=== PATIENT | male | born 1960 | race Two or more races ===

== ENCOUNTER 2025-01-17 15:25 | Outpatient (CLI) | payer OTHER | END 2025-01-17 15:33 | disposition home or self-care (01) | LOC: EKG 15:25 | PROVIDERS: ATTEND Internal Medicine Hematology & Oncology | DX: I49.5 Sick sinus syndrome (principal) ==

== ENCOUNTER 2025-06-05 10:44 | Inpatient (IN) | payer OTHER ==
[2025-06-05 12:02] LABS: BASO % 0.6 % (0.1-1.2); EOS # 0.04 (0.04-0.54); EOS % 0.8 % (0.7-7.0); LYMPH # 1.26 (1.18-3.74); LYMPH % 24.0 % (19.3-53.1); MEAN PLATELET VOLUME 9.30 fl (9.4-12.4); MONO # 0.37 (0.24-0.82); MONO % 7.0 % (4.7-12.5); NEUT # 3.23 (1.56-6.13); NEUT % 61.5 % (34.0-71.1); RED CELL DISTRIBUTION WIDTH 17.8 % (11.6-14.4)
[2025-06-05 12:33] LABS: INR 1.08
[2025-06-05 12:41] LABS: ALT/SGPT 10.0 U/L (12-78); AST/SGOT 53.0 U/L (15-37); BILIRUBIN TOTAL 0.7 mg/dL (0.3-1.2); BUN CREA RATIO 13.0 (7.0-25.0); CREATININE SERUM 0.93 mg/dL (0.70-1.30); GFR 81.29; GLOBULINA 3.5 G/DL (2.4-3.5); GLUCOSE FASTING 154.0 mg/dL (65-100); OSMOLALITY SERUM 284.0 MOSM/KG (275-295)
[2025-06-05] MEDS ORDERED: RINGERS SOLUTION,LACTATED 1,000 ML IV SCH (13:15)
[2025-06-05] MEDS ORDERED: ACETAMINOPHEN 325 MG TABLET PO PRN (13:15)
[2025-06-05] MEDS ORDERED: MULTIVIT INFUSN,ADULT 4,VIT K 10 ML VIAL IV SCH (13:22)
[2025-06-05 16:37] VITALS: BP 149/78; O2SAT 99
[2025-06-05 17:52] VITALS: BP 154/78; O2SAT 98
[2025-06-05] MEDS ORDERED: FAMOTIDINE/PF 20 MG/2 ML VIAL IV PUSH STA (18:58)
[2025-06-05] MEDS ORDERED: TRAMADOL HCL50 MG (19:36)
[2025-06-05] MEDS ORDERED: XGEVA120 MG/1.7 (19:36)
[2025-06-05] MEDS ORDERED: XTANDI80 MG (19:36)
[2025-06-05] MEDS ORDERED: PANTOPRAZOLE SO40 MG (19:37)
[2025-06-06 01:31] VITALS: BP 136/83; O2SAT 97
[2025-06-06 08:26] VITALS: BP 163/79; O2SAT 98
[2025-06-06] MEDS ORDERED: FAMOTIDINE/PF 20 MG/2 ML VIAL IV PUSH SCH (09:00)
[2025-06-06] MEDS ORDERED: ENALAPRILAT DIHYDRATE 1.25 MG/ML VIAL IV STA (09:29)
[2025-06-06] MEDS ORDERED: ENALAPRILAT DIHYDRATE 1.25 MG/ML VIAL IV PRN (09:30)
[2025-06-06 16:00] VITALS: BP 161/81; O2SAT 97
[2025-06-06 18:41] LABS: BASO % 0.6 % (0.1-1.2); EOS # 0.03 (0.04-0.54); EOS % 0.6 % (0.7-7.0); LYMPH # 1.61 (1.18-3.74); LYMPH % 29.7 % (19.3-53.1); MEAN PLATELET VOLUME 9.10 fl (9.4-12.4); MONO # 0.37 (0.24-0.82); MONO % 6.8 % (4.7-12.5); NEUT # 3.01 (1.56-6.13); NEUT % 55.3 % (34.0-71.1); RED CELL DISTRIBUTION WIDTH 16.4 % (11.6-14.4)
[2025-06-06 21:10] LABS: BAND MAN 1.0 %; LYMPHOCYTE MAN 23.0 %
[2025-06-06 21:11] LABS: MONOCYTE MAN 9.0 %; MYELOCYTE 3.0 %
[2025-06-06 21:12] LABS: BLAST MAN 1.0 %
[2025-06-06 21:13] LABS: NEUTROPHILS MAN 63.0 %
== END 2025-06-06 19:59 | disposition home or self-care (01) | DRG 723 ==
LOC: SURH 10:44 → SEC-K 10:44 → SURH 16:06
PROVIDERS: ADMIT Internal Medicine Hematology & Oncology; ATTEND Internal Medicine Hematology & Oncology
PROC: 30233N1 Transfusion of Nonautologous Red Blood Cells into Peripheral Vein, Percutaneous Approach (ICD-10-PCS; principal; 2025-06-05)
DX: C61 Malignant neoplasm of prostate (principal); C77.5 Secondary and unspecified malignant neoplasm of intrapelvic lymph nodes; C79.51 Secondary malignant neoplasm of bone; D63.0 Anemia in neoplastic disease; E29.1 Testicular hypofunction; K21.9 Gastro-esophageal reflux disease without esophagitis

== ENCOUNTER 2025-07-17 19:10 | Inpatient (IN) | payer OTHER ==
[~2025-07-17] VITALS: Ht 170.2 cm; Wt 57.6 kg
[~2025-07-17 19:10] MED LIST: PANTOPRAZOLE SO40 MG; TRAMADOL HCL50 MG; XGEVA120 MG/1.7; XTANDI80 MG
[2025-07-17] MEDS ORDERED: XTANDI80 MG PO (19:37)
[2025-07-17] MEDS ORDERED: GLIMEPIRIDE1 MG (19:38)
[2025-07-17] MEDS ORDERED: ARBLI10 MG/1 ML PO (19:38)
[2025-07-17] MEDS ORDERED: CARDURA XL4 MG PO (19:38)
--- NOTE | 2025-07-17 19:38 | NUR ---
SE RECIBE PACIENTE ALERTA Y CONCIENTE X3. EL MISMO REFIERE TENER REFERIDO P[FRDEDY TRANFUSION DE TONYA DEL DR. NAVARRO. SE PROCEDE A AGGIE S/V A PACIENTE Y SE UBICA EL MISMO EN ANDERSON, BARANDAS ELEVADAS Y NIVEL MAS BAJO DE LA MISMA.
[2025-07-17] MEDS ORDERED: FAMOTIDINE/PF 20 MG/2 ML VIAL IV STA (19:51)
[2025-07-17] MEDS ORDERED: 0.9 % SODIUM CHLORIDE 1,000 ML IV STA (19:51)
[2025-07-17] MEDS ORDERED: FAMOTIDINE/PF 20 MG/2 ML VIAL ONE (20:04)
[2025-07-17 20:38] LABS: URINE APPEARANCE Turbid; URINE BILIRRUBIN Negative (NEGATIVE); URINE BLOOD Moderate; URINE COLOR Yellow; URINE GLUCOSE Negative (NEGATIVE); URINE KETONE Trace (NEGATIVE); URINE LEUKOCYTE Large; URINE NITRATE Positive; URINE UROBILINOGEN 0.2 E.U./dl
[2025-07-17 20:42] LABS: URINE CAST 1.90 uL (0.0-1.40); URINE EPITHELIAL CELLS 11.8 uL (0.0-38.8); URINE RBC 133.9 uL (0.0-20.8)
--- NOTE | 2025-07-17 20:43 | NUR ---
SE EDUCA PACIENTE SOBRE EL [place] MEDICO Y ESTA REFIERE ENTENDER. SE MICHEAL MUESTRAS DE LABORATORIOS Y SE ENVIAN. SE CANALIZA Y SE ADMINISTRA MEDIAMENTOS AISHA ORDEN MEDICA. SE REALIZA EKG
[2025-07-17 20:44] LABS: BASO % 0.4 % (0.1-1.2); EOS # 0.04 (0.04-0.54); EOS % 1.6 % (0.7-7.0); LYMPH # 0.75 (1.18-3.74); LYMPH % 30.7 % (19.3-53.1); MEAN PLATELET VOLUME 9.30 fl (9.4-12.4); MONO # 0.26 (0.24-0.82); MONO % 10.7 % (4.7-12.5); NEUT # 1.27 (1.56-6.13); NEUT % 52.1 % (34.0-71.1); RED CELL DISTRIBUTION WIDTH 19.4 % (11.6-14.4)
[2025-07-17 21:06] LABS: TYPE CELLS RENAL TUBULAR; URINE BACTERIA > 9821.5 uL (0.0-1933); URINE PROTEIN 100 (NEGATIVE); URINE WBC > 5548.3 uL (0.0-23.2)
[2025-07-17 21:10] LABS: INR 1.02
[2025-07-17 21:12] LABS: BUN CREA RATIO 17.0 (7.0-25.0); CREATININE SERUM 1.04 mg/dL (0.70-1.30); GFR 71.45; GLUCOSE FASTING 186.0 mg/dL (65-100); OSMOLALITY SERUM 290.0 MOSM/KG (275-295)
[2025-07-17] MEDS ORDERED: ACETAMINOPHEN 325 MG TABLET PO PRN (21:15)
[2025-07-17] MEDS ORDERED: LOSARTAN POTASSIUM 100 MG TABLET PO SCH (21:15)
[2025-07-17] MEDS ORDERED: DEXTROSE 50 % IN WATER 0.5 G/ML DISP.SYRIN IV PRN (21:15)
[2025-07-17] MEDS ORDERED: INSULIN LISPRO 1,000 UNIT/10 ML UNITS SUBCUTANEO PRN (21:15)
[2025-07-17] MEDS ORDERED: ONDANSETRON HCL 4 MG in 0.9 % SODIUM CHLORIDE 50 ML IV PRN (21:15)
[2025-07-17] MEDS ORDERED: FAMOTIDINE/PF 20 MG in 0.9 % SODIUM CHLORIDE 8 ML IV PUSH SCH (21:15)
[2025-07-17] MEDS ORDERED: DOXAZOSIN MESYLATE 4 MG TABLET PO SCH (21:16)
[2025-07-17] MEDS ORDERED: 0.9 % SODIUM CHLORIDE 1,000 ML IV SCH (21:30)
[2025-07-17 22:14] LABS: BAND MAN 2.0 %; EOSINOPHIL MAN 1.0 %; LYMPHOCYTE MAN 29.0 %; METAMYELOCYTE 2.0 %; MONOCYTE MAN 10.0 %; MYELOCYTE 1.0 %; NEUTROPHILS MAN 52.0 %
[2025-07-18 07:10] VITALS: BP 112/74; O2SAT 98
[2025-07-18 07:20] VITALS: BP 116/70
[2025-07-18 15:28] VITALS: BP 184/88
[2025-07-18 21:11] VITALS: BP 160/79; O2SAT 98
[2025-07-19 02:01] VITALS: BP 139/73; O2SAT 98
[2025-07-19 09:38] VITALS: BP 150/75; O2SAT 98
[2025-07-19 18:03] VITALS: BP 162/80
[2025-07-20 03:32] VITALS: BP 161/85; O2SAT 98
[2025-07-20 07:48] LABS: BASO % 1.0 % (0.1-1.2); EOS # 0.06 (0.04-0.54); EOS % 2.9 % (0.7-7.0); LYMPH # 0.62 (1.18-3.74); LYMPH % 29.8 % (19.3-53.1); MEAN PLATELET VOLUME 9.40 fl (9.4-12.4); MONO # 0.24 (0.24-0.82); MONO % 11.5 % (4.7-12.5); NEUT # 1.02 (1.56-6.13); NEUT % 49.0 % (34.0-71.1); RED CELL DISTRIBUTION WIDTH 17.7 % (11.6-14.4)
[2025-07-20 08:27] VITALS: BP 149/73; O2SAT 97
[2025-07-20] MEDS ORDERED: MULTIVIT INFUSN,ADULT 4,VIT K 10 ML VIAL IV SCH (17:00)
[2025-07-20 18:50] VITALS: BP 141/82
[2025-07-21 04:31] VITALS: BP 171/83; O2SAT 98
[2025-07-21 08:55] VITALS: BP 165/79; O2SAT 98
[2025-07-21 18:10] VITALS: BP 170/106
[2025-07-21 22:18] LABS: BASO % 0.3 % (0.1-1.2); EOS # 0.02 (0.04-0.54); EOS % 0.7 % (0.7-7.0); LYMPH # 0.66 (1.18-3.74); LYMPH % 21.6 % (19.3-53.1); MEAN PLATELET VOLUME 8.50 fl (9.4-12.4); MONO # 0.25 (0.24-0.82); MONO % 8.2 % (4.7-12.5); NEUT # 1.98 (1.56-6.13); NEUT % 64.6 % (34.0-71.1); RED CELL DISTRIBUTION WIDTH 17.4 % (11.6-14.4)
[2025-07-21 22:44] LABS: LYMPHOCYTE MAN 35.0 %; MONOCYTE MAN 8.0 %; NEUTROPHILS MAN 57.0 %
[2025-07-22 02:52] VITALS: BP 103/78; O2SAT 99
[2025-07-22 09:12] VITALS: BP 160/80; O2SAT 98
[2025-07-22 20:57] VITALS: BP 160/81; O2SAT 97
[2025-07-23 01:10] VITALS: BP 153/79; O2SAT 97
[2025-07-23 06:18] LABS: BASO % 0.7 % (0.1-1.2); EOS # 0.08 (0.04-0.54); EOS % 2.8 % (0.7-7.0); LYMPH # 0.79 (1.18-3.74); LYMPH % 27.3 % (19.3-53.1); MEAN PLATELET VOLUME 8.70 fl (9.4-12.4); MONO # 0.34 (0.24-0.82); MONO % 11.8 % (4.7-12.5); NEUT # 1.53 (1.56-6.13); NEUT % 52.9 % (34.0-71.1); RED CELL DISTRIBUTION WIDTH 16.9 % (11.6-14.4)
[2025-07-23 07:25] LABS: BAND MAN 11.0 %; EOSINOPHIL MAN 5.0 %; LYMPHOCYTE MAN 21.0 %; MONOCYTE MAN 11.0 %; NEUTROPHILS MAN 50.0 %
[2025-07-23 10:07] VITALS: BP 155/77; O2SAT 97
== END 2025-07-23 14:44 | disposition home or self-care (01) | DRG 723 ==
LOC: ER → MEDJ 21:34 → SEC-K 21:34 → MEDJ 07-18 14:10
PROVIDERS: General Practice; ADMIT Internal Medicine; ATTEND Internal Medicine
PROC: 30233N1 Transfusion of Nonautologous Red Blood Cells into Peripheral Vein, Percutaneous Approach (ICD-10-PCS; principal; 2025-07-18)
DX: C61 Malignant neoplasm of prostate (principal); C79.51 Secondary malignant neoplasm of bone; D63.0 Anemia in neoplastic disease; I10 Essential (primary) hypertension; K21.9 Gastro-esophageal reflux disease without esophagitis; E11.9 Type 2 diabetes mellitus without complications; Z79.4 Long term (current) use of insulin